=== PATIENT | male | born 1945 | race Caucasian/White ===

== ENCOUNTER 2021-03-03 20:05 | Observation (INO) ==
[2021-03-03] MEDS ORDERED: fentaNYL 100 mcg/2 ml 50 MCG/ML VIAL IV ONE (20:09)
[2021-03-03] MEDS ORDERED: Nitro 2% OINT (Nitroglycerin) 1 INCH/PAK TOPICAL ONE (20:09)
[2021-03-03 20:36] LABS: ABS Basophils 0.1 10^3/ul (0-0.2); ABS Eosinophils 0.3 10^3/ul (0-0.6); ABS Lymphocytes 1.7 10^3/ul (1.0-4.8); ABS Monocytes 0.9 10^3/ul (0-0.8); ABS Neutrophils 3.8 10^3/ul (1.5-7.7); Eosinophil % 3.8 %; Hematocrit 33 % (42-52); Hemoglobin 10.9 g/dL (14.0-18.0); Lymphocyte % 24.7 %; Mean Corpuscular HGB Conc 33 g/dL (31-36); Mean Corpuscular Hemoglobin 32 pg (27-31); Mean Corpuscular Volume 96 fL (80-94); Mean Platelet Volume 6.7 fL (7.4-10.4); Nucleated Red Blood Cells % 0.1; Platelet Count 205 10^3/uL (150-450); Red Cell Distribution Width 15 % (10-15); White Blood Count 6.8 10^3/uL (3.5-10.8)
[2021-03-03 20:57] LABS: ALT 16 U/L (7-52); AST 22 U/L (13-39); Albumin 3.8 g/dL (3.2-5.2); Albumin/Globulin Ratio 1.1 (1-3); Alkaline Phosphatase 272 U/L (35-149); Anion Gap 4 mmol/L (2-11); Blood Urea Nitrogen 33 mg/dL (6-24); CO2 Carbon Dioxide 29 mmol/L (22-32); Chloride 105 mmol/L (101-111); EGFR African American 66.5 (>60); EGFR Non-African American 54.9 (>60); Globulin 3.6 g/dL (2-4); Glucose 87 mg/dL (70-100); Potassium 4.6 mmol/L (3.5-5.0); Sodium 138 mmol/L (135-145); Total Protein 7.4 g/dL (6.4-8.9)
[2021-03-03 20:59] LABS: Troponin I 0.03 ng/mL (<0.03)
[2021-03-03] MEDS ORDERED: Ondansetron 4 mg VIAL 2 MG/ML 2 ml VIAL IV PRN (22:55)
[2021-03-03 23:12] LABS: Magnesium 2.4 mg/dL (1.9-2.7)
[2021-03-03 23:14] LABS: Alcohol, S < 10 mg/dL (<10)
[2021-03-03 23:30] LABS: TSH Ultra Thyroid Stim Horm 5.08 mcIU/mL (0.34-5.60)
[2021-03-03] MEDS ORDERED: Dextrose 50% Syringe 50 ml 25 GM/50 ML SYRINGE IV PUSH PRN (23:50)
[2021-03-03 23:54] LABS: Troponin I 0.03 ng/mL (<0.03)
[2021-03-04] MEDS: Phenytoin 100 mg ER CAP PO SCH ×3 (00:43→17:24)
[2021-03-04 01:37] LABS: Phenytoin 6.4 mcg/mL (10-20)
[2021-03-04 02:49] LABS: Troponin I 0.03 ng/mL (<0.03)
[2021-03-04 06:37] LABS: ABS Basophils 0.1 10^3/ul (0-0.2); ABS Eosinophils 0.3 10^3/ul (0-0.6); ABS Lymphocytes 1.7 10^3/ul (1.0-4.8); ABS Monocytes 0.8 10^3/ul (0-0.8); ABS Neutrophils 3.4 10^3/ul (1.5-7.7); Eosinophil % 4.9 %; Hematocrit 28 % (42-52); Hemoglobin 9.7 g/dL (14.0-18.0); Lymphocyte % 26.6 %; Mean Corpuscular HGB Conc 35 g/dL (31-36); Mean Corpuscular Hemoglobin 33 pg (27-31); Mean Corpuscular Volume 95 fL (80-94); Mean Platelet Volume 7.1 fL (7.4-10.4); Platelet Count 179 10^3/uL (150-450); Red Blood Count 2.96 10^6 /uL (4.18-5.48); Red Cell Distribution Width 15 % (10-15); White Blood Count 6.2 10^3/uL (3.5-10.8)
[2021-03-04 06:57] LABS: ALT 13 U/L (7-52); AST 19 U/L (13-39); Albumin 3.3 g/dL (3.2-5.2); Albumin/Globulin Ratio 1.1 (1-3); Alkaline Phosphatase 228 U/L (35-149); Anion Gap 5 mmol/L (2-11); Blood Urea Nitrogen 29 mg/dL (6-24); CO2 Carbon Dioxide 26 mmol/L (22-32); Calcium 8.6 mg/dL (8.6-10.3); Chloride 106 mmol/L (101-111); Cholesterol 141 mg/dL; EGFR African American 76.8 (>60); EGFR Non-African American 63.4 (>60); Globulin 3.1 g/dL (2-4); Glucose 94 mg/dL (70-100); Indirect Bilirubin 0.4 mg/dL (0.3-1.0); LDL Cholesterol 85 mg/dL; Potassium 4.2 mmol/L (3.5-5.0); Sodium 137 mmol/L (135-145); Total Protein 6.4 g/dL (6.4-8.9); Triglycerides 66 mg/dL
[2021-03-04 07:00] LABS: % Iron Saturation 23 % (15-55); GGTP 247 U/L (9-64.0); Iron 67 ug/dL (50-212); Total Iron Binding Capacity 291 mcg/dL (250-450); Transferrin 208 mg/dL (203-362); Unsaturated Iron Binding < 276 ug/dL
[2021-03-04] MEDS: Heparin 5000 UNITS/ML 1 mL VIAL SUBCUT SCH ×3 (07:12→22:09)
[2021-03-04 07:16] LABS: Ferritin 99.5 ng/mL (24-336)
[2021-03-04 08:30] LABS: Folate 10.16 ng/mL (5.90-24.80)
[2021-03-04 08:31] LABS: Vitamin B12 274 pg/mL (180-914)
[2021-03-04] MEDS: Aspirin EC 81 mg TAB.EC (enteric coated) PO SCH (08:45)
[2021-03-04] MEDS ORDERED: Famotidine IV 10 MG/ML 2 ml VIAL (20 mg) IV SLOW PU ONE (11:00)
[2021-03-04] MEDS ORDERED: Regadenoson 0.4 MG/5 ML SYRINGE ONE (12:12)
[2021-03-04] MEDS ORDERED: Lorazepam PYXIS KEY ONE (12:16)
[2021-03-04] MEDS ORDERED: LORazepam 2 mg VIAL 1 ml ONE (12:16)
[2021-03-04] MEDS ORDERED: Al Hydrox/Mg Hydrox/Simet LIQ 30 ML UDC PO PRN (16:51)
[2021-03-05] MEDS: Heparin 5000 UNITS/ML 1 mL VIAL SUBCUT SCH (05:13)
[2021-03-05] MEDS: Phenytoin 100 mg ER CAP PO SCH (09:10)
[2021-03-05] MEDS: Aspirin EC 81 mg TAB.EC (enteric coated) PO SCH (09:10)
[2021-03-05 11:55] VITALS: BP 135/60
== END 2021-03-05 14:39 ==
LOC: ED 20:05 → MEDTELE 20:05
PROVIDERS: ADMIT Hospitalist; ATTEND Internal Medicine

== ENCOUNTER 2021-12-22 22:14 | Observation (INO) ==
[2021-12-22 23:55] LABS: ABS Basophils 0.1 10^3/ul (0-0.2); ABS Eosinophils 0.3 10^3/ul (0-0.6); ABS Lymphocytes 1.6 10^3/ul (1.0-4.8); ABS Monocytes 0.7 10^3/ul (0-0.8); ABS Neutrophils 3.1 10^3/ul (1.5-7.7); Eosinophil % 5.7 %; Hematocrit 31 % (42-52); Hemoglobin 10.5 g/dL (14.0-18.0); Lymphocyte % 27.5 %; Mean Corpuscular HGB Conc 35 g/dL (31-36); Mean Corpuscular Hemoglobin 32 pg (27-31); Mean Corpuscular Volume 94 fL (80-94); Mean Platelet Volume 6.9 fL (7.4-10.4); Nucleated Red Blood Cells % 0.1; Platelet Count 115 10^3/uL (150-450); Red Blood Count 3.27 10^6 /uL (4.18-5.48); Red Cell Distribution Width 14 % (10-15); White Blood Count 5.8 10^3/uL (3.5-10.8)
[2021-12-23 00:31] LABS: Albumin 3.6 g/dL (3.2-5.2); Albumin/Globulin Ratio 1.4 (1-3); Calcium 8.2 mg/dL (8.6-10.3); Globulin 2.5 g/dL (2-4); Potassium 4.1 mmol/L (3.5-5.0); Total Bilirubin 0.3 mg/dL (0.2-1.0); Total Protein 6.1 g/dL (6.4-8.9); eGFR CKD-EPI 51.4 (>60)
[2021-12-23 00:32] LABS: INR 1.08 (0.86-1.15)
[2021-12-23 01:15] LABS: High Sensitivity Troponin 1 Hr 14 pg/mL (<20)
[2021-12-23 05:41] LABS: ABS Basophils 0.1 10^3/ul (0-0.2); ABS Eosinophils 0.3 10^3/ul (0-0.6); ABS Lymphocytes 1.5 10^3/ul (1.0-4.8); ABS Monocytes 0.6 10^3/ul (0-0.8); ABS Neutrophils 2.9 10^3/ul (1.5-7.7); Eosinophil % 6.1 %; Hematocrit 32 % (42-52); Hemoglobin 11.2 g/dL (14.0-18.0); Lymphocyte % 27.4 %; Mean Corpuscular HGB Conc 35 g/dL (31-36); Mean Corpuscular Hemoglobin 33 pg (27-31); Mean Corpuscular Volume 95 fL (80-94); Mean Platelet Volume 6.4 fL (7.4-10.4); Platelet Count 117 10^3/uL (150-450); Red Cell Distribution Width 14 % (10-15); White Blood Count 5.4 10^3/uL (3.5-10.8)
[2021-12-23 06:26] LABS: Calcium 8.7 mg/dL (8.6-10.3); HDL Cholesterol 50.5 mg/dL; Magnesium 2.2 mg/dL (1.9-2.7); Phenytoin 9.1 mcg/mL (10-20); eGFR CKD-EPI 53.7 (>60)
[2021-12-23] MEDS ORDERED: Aminophylline 25 MG/ML VIAL ONE (08:39)
[2021-12-23] MEDS ORDERED: Regadenoson 0.4 MG/5 ML SYRINGE ONE (08:39)
[2021-12-23] MEDS ORDERED: Heparin 5000 UNITS/ML 1 mL VIAL SUBCUT SCH (09:00)
[2021-12-23] MEDS ORDERED: Aspirin EC 81 mg TAB.EC (enteric coated) PO SCH (09:00)
[2021-12-23] MEDS ORDERED: Phenytoin 100 mg ER CAP PO SCH ×2 (09:00→21:00)
[2021-12-23 11:53] VITALS: BP 161/64
== END 2021-12-23 12:55 ==
LOC: ED 22:14 → EDHOLD 22:14 → MEDTELE 12-23 09:59
PROVIDERS: ADMIT Student in an Organized Health Care Education/Training Program; ATTEND Student in an Organized Health Care Education/Training Program

== ENCOUNTER 2024-08-17 07:24 | Observation (INO) ==
[2024-08-17] MEDS: Iodixanol 320 (CONTRAST) 100 ML SDV IV ONE ×2 (07:44→09:59)
[2024-08-17 07:53] LABS: Hematocrit 37.9 % (38-53); Hemoglobin 13.2 g/dL (13.2-16.3); Mean Corpuscular Hemoglobin 32.6 pg (27-33); Mean Corpuscular Hgb Conc 34.8 g/dL (31-36); Mean Corpuscular Volume 93.5 fL (80-97); Red Blood Count 4.05 10^6/uL (4.06-5.63); Red Cell Distribution Width 14.5 % (12-17); White Blood Count 6.5 10^3/uL (3.6-10.2)
[2024-08-17 07:58] LABS: Activated Partial Thrombo Time 30.6 seconds (26.0-38.0); INR 1.07 (0.85-1.14)
[2024-08-17 08:27] LABS: Urine Appearance Clear; Urine Bilirubin Negative (Negative); Urine Blood 2+ (Negative); Urine Color Colorless; Urine Glucose Negative (Negative); Urine Ketones Negative (Negative); Urine Nitrite Negative (Negative); Urine Protein 1+ (>=30 mg/dL) (Negative); Urine Specific Gravity 1.011 (1.002-1.030); Urine Urobilinogen Negative (Negative)
[2024-08-17 08:30] LABS: ABS Basophils 0.1 10^3/uL (0.0-0.1); ABS Eosinophils 0.2 10^3/uL (0.0-0.5); ABS Lymphocytes 1.6 10^3/uL (1.0-4.8); ABS Monocytes 0.8 10^3/uL (0.0-1.1); ABS Neutrophils 3.7 10^3/uL (1.5-7.6); Eosinophil % 3.2 %; Lymphocyte % 25.2 %; Platelet Count 92 10^3/uL (150-450)
[2024-08-17 08:31] LABS: Albumin 3.9 g/dL (3.2-5.2); Albumin/Globulin Ratio 1.3 (1-3); Creatinine, Serum 1.39 mg/dL (0.67-1.17); Direct Bilirubin 0.1 mg/dL (0.03-0.18); Indirect Bilirubin 0.4 mg/dL (0.3-1.0); Potassium 4.3 mmol/L (3.5-5.0); Total Bilirubin 0.5 mg/dL (0.2-1.0); Total Protein 6.9 g/dL (6.4-8.9); eGFR CKD-EPI 52.2 (>60)
[2024-08-17 08:37] LABS: Urine Bacteria Absent /HPF (Absent); Urine Red Blood Cell 3+(>10/hpf) /HPF (0-Trace); Urine Squamous Epithelial Cell Present /HPF (Absent); Urine White Blood Cell Trace(0-5/hpf) /HPF (0-Trace)
[2024-08-17] MEDS ORDERED: Sulfur Hexaflouride MICROSPHR 25 MG VIAL IV PRN (09:06)
[2024-08-17] MEDS ORDERED: Labetalol IV 5 MG/ML 20 ml VIAL IV PUSH PRN (09:12)
[2024-08-17] MEDS ORDERED: Dextrose 50% Syringe 50 ml 25 GM/50 ML SYRINGE IV PUSH PRN (09:35)
[2024-08-17] MEDS ORDERED: Iodixanol 320 (CONTRAST) 100 ML SDV IV SCH (09:59)
[2024-08-17] MEDS: Phenytoin 100 mg ER CAP PO SCH (10:55)
[2024-08-17] MEDS: Sodium Bicarb 650 mg (ANTACID) TAB PO SCH (10:55)
[2024-08-17] MEDS: Mometasone/Formoter 100/5 MDI INH SCH (10:55)
[2024-08-17 11:36] LABS: High Sensitivity Troponin 1 Hr 29 pg/mL (<20)
[2024-08-17] MEDS: Enoxaparin 40 MG/0.4 ML SYR SUBCUT SCH (12:27)
[2024-08-17 14:58] LABS: High Sensitivity Troponin 3 Hr 30 pg/mL (<20)
[2024-08-18 06:47] LABS: Calcium 8.3 mg/dL (8.6-10.3); Creatinine, Serum 1.49 mg/dL (0.67-1.17); Potassium 4.3 mmol/L (3.5-5.0)
[2024-08-18 07:03] LABS: ABS Basophils 0.1 10^3/uL (0.0-0.1); ABS Eosinophils 0.2 10^3/uL (0.0-0.5); ABS Lymphocytes 1.5 10^3/uL (1.0-4.8); ABS Neutrophils 4.1 10^3/uL (1.5-7.6); Hematocrit 33.7 % (38-53); Lymphocyte % 21.5 %; Mean Corpuscular Hemoglobin 33.2 pg (27-33); Mean Corpuscular Hgb Conc 35.6 g/dL (31-36); Mean Corpuscular Volume 93.1 fL (80-97); Mean Platelet Volume 7.3 fL (7.5-11.2); Nucleated Red Blood Cells % 0.1 %/100WBC (0.0-0.8); Platelet Count 88 10^3/uL (150-450); Red Blood Count 3.63 10^6/uL (4.06-5.63); White Blood Count 6.8 10^3/uL (3.6-10.2)
[2024-08-18] MEDS: Isosorbide Mononit ER 30mg TAB PO SCH (10:08)
[2024-08-18] MEDS: Lidocaine PATCH 5% PATCH TRANSDERM SCH (10:10)
[2024-08-18] MEDS: Albuterol HFA INHALER 8 gm MDI INH PRN (21:56)
[2024-08-19 08:34] LABS: ABS Basophils 0.1 10^3/uL (0.0-0.1); ABS Eosinophils 0.2 10^3/uL (0.0-0.5); ABS Lymphocytes 1.4 10^3/uL (1.0-4.8); ABS Neutrophils 3.4 10^3/uL (1.5-7.6); Eosinophil % 3.6 %; Hematocrit 33.8 % (38-53); Hemoglobin 11.8 g/dL (13.2-16.3); Lymphocyte % 22.9 %; Mean Corpuscular Hemoglobin 32.1 pg (27-33); Mean Corpuscular Volume 91.8 fL (80-97); Mean Platelet Volume 7.1 fL (7.5-11.2); Platelet Count 90 10^3/uL (150-450); Red Blood Count 3.68 10^6/uL (4.06-5.63); Red Cell Distribution Width 14.2 % (12-17); White Blood Count 6.1 10^3/uL (3.6-10.2)
[2024-08-19 09:04] LABS: Calcium 8.3 mg/dL (8.6-10.3); Creatinine, Serum 1.36 mg/dL (0.67-1.17); Magnesium 1.9 mg/dL (1.9-2.7); eGFR CKD-EPI 53.6 (>60)
[2024-08-20 14:29] VITALS: BP 122/52
== END 2024-08-20 15:30 ==
LOC: EDHOLD 07:24 → ED 07:24 → MED 13:55
PROVIDERS: ADMIT Internal Medicine; ATTEND Internal Medicine